=== PATIENT | male | born 1955 | race Caucasian/White ===

== ENCOUNTER 2024-07-13 11:05 | Emergency (ER) | payer MEDICAID ==
[~2024-07-13] VITALS: Ht 177.8 cm; Wt 81.8 kg
[2024-07-13 11:09] VITALS: BP 117/103; PULSE 67; RESP 18; TEMP 98; O2SAT 97
[2024-07-14] MEDS ORDERED: LISI10TA27 PO (02:13)
== END 2024-07-13 12:09 ==
LOC: ER 11:06 → EEVIPCON 11:06 → ER 12:09
DX: Z02.89 Encounter for other administrative examinations (principal)
CPT/HCPCS: 99283

== ENCOUNTER 2024-07-13 18:04 | Inpatient (IN) | payer MEDICAID, OTHER ==
[~2024-07-13] VITALS: Ht 170.2 cm; Wt 78.1 kg
[2024-07-13] MEDS: normal saline 1000ml 1,000 ML IV ONE ×2 (18:30→22:04)
[2024-07-13 19:34] LABS: BASOPHILS % (AUTO) 0.1 % (0-1); EOSINOPHILS % (AUTO) 0 % (0-6); HEMATOCRIT 35.2 % (42.0-52.0); HEMOGLOBIN 11.7 g/dl (14.0-17.9); LYMPHOCYTES # (AUTO) 0.7 X10'3 (1.1-4.8); LYMPHOCYTES % (AUTO) 4.7 % (21-51); MEAN CORPUSCULAR HGB CONC 33.4 g/dL (33.0-36.5); MEAN CORPUSCULAR VOLUME 95.8 FL (78-98); MEAN PLATELET VOLUME 9.6 FL (7.4-10.4); MONOCYTES # (AUTO) 0.7 X10'3 (0-0.9); MONOCYTES % (AUTO) 4.7 % (2-12); NEUTROPHILS # (AUTO) 12.7 X10'3 (1.8-7.7); NEUTROPHILS % (AUTO) 90.5 % (42-75); PLATELET COUNT 249 X10'3 (140-440); RED BLOOD COUNT 3.67 X10'6 (4.70-6.10); RED CELL DISTRIBUTION WIDTH 13.9 % (11.5-14.5)
[2024-07-13 19:51] LABS: ALANINE AMINOTRANSFERASE 27 U/L (12-78); ALBUMIN 4.4 G/DL (3.4-5.0); ALBUMIN/GLOBULIN RATIO 1.1 (1.1-1.5); ALKALINE PHOSPHATASE 92 IU/L (46-116); ANION GAP 11 (8-16); ASPARTATE AMINO TRANSFERASE 35 U/L (10-37); BILIRUBIN,TOTAL 0.4 MG/DL (0.1-1.0); BLOOD UREA NITROGEN 42 MG/DL (7-18); BUN/CREATININE RATIO 14.6 (10.0-20.0); CALCIUM 8.7 MG/DL (8.5-10.1); CHLORIDE 109 MMOL/L (99-107); CREATININE 2.88 MG/DL (0.60-1.10); GLUCOSE 139 MG/DL (70-104); POTASSIUM 4.4 MMOL/L (3.5-5.1); SODIUM 143 MMOL/L (135-145); TOTAL CARBON DIOXIDE 22.7 MMOL/L (24-32); TOTAL PROTEIN 8.3 G/DL (6.4-8.2); eCRCL 24 ML/MIN; eGFR 22 ML/MIN
[2024-07-13 19:55] LABS: ETHANOL < 10 MG/DL (<10)
[2024-07-13 20:36] LABS: BILIRUBIN,URINE NEGATIVE (Neg); CLARITY,URINE CLEAR (Clear); COLOR,URINE YELLOW (Yellow); GLUCOSE, URINE NEGATIVE (Neg); KETONES,URINE NEGATIVE (Neg); LEUKOCYTE ESTERASE ,URINE NEGATIVE (Neg); NITRITES, URINE NEGATIVE (Neg); OCCULT BLOOD,URINE NEGATIVE (Neg); PROTEIN,URINE TRACE mg/dl (Neg); UROBILINOGEN,URINE 0.2 E.U/dL (0.2-1.0)
[2024-07-13 20:39] LABS: UA COLLECTION TYPE STRAIGHT CATH
[2024-07-13 20:43] LABS: MUCUS STRANDS FEW /LPF (Neg); SQUAMOUS EPITHELIAL CELL,UR FEW /LPF (FEW)
[2024-07-13 20:44] LABS: BACTERIA,URINE FEW /HPF (Neg); RBC,URINE 0-2 /HPF (0-2)
[2024-07-13 20:53] LABS: URINE AMPHETAMINE SCREEN NEGATIVE (Neg); URINE BARBITUATE SCREEN NEGATIVE (Neg); URINE BENZODIAZEPINES SCREEN NEGATIVE (Neg); URINE CANNABINOID SCREEN NEGATIVE (Neg); URINE COCAINE SCREEN NEGATIVE (Neg); URINE METHADONE SCREEN NEGATIVE (Neg); URINE OPIATE SCREEN NEGATIVE (Neg); URINE PHENCYCLIDINE SCREEN NEGATIVE (Neg)
[2024-07-13] MEDS: thiamine 100mg/ml 2ml inj. IV ONE (22:10)
[2024-07-13] MEDS: TETanus/Pertussis (Acell)/Diphther VAC/PF (Tdap-Adult) 0.5ml syringe IMVAC ONE (22:13)
[2024-07-13] MEDS: lactulose 20gm/30ml cup PO ONE (23:35)
[2024-07-13] MEDS ORDERED: morphine 2 MG/ML inj. syringe IV PRN (23:40)
[2024-07-13] MEDS ORDERED: potassium Cl 40MEQ/1/2NS 520ml 520 ML IV PRN (23:40)
[2024-07-13] MEDS ORDERED: potassium Cl 20 mEq SR tablet PO PRN ×2 (23:40)
[2024-07-13] MEDS ORDERED: mag hydrox/Alum hydrox/simeth 30ml oral suspension PO PRN (23:40)
[2024-07-13] MEDS ORDERED: magnesium sulf-water 4G/100mL 100 ML IV PRN (23:40)
[2024-07-13] MEDS ORDERED: magnesium Cl slow-release 64mg tablet PO PRN (23:40)
[2024-07-13] MEDS ORDERED: LORazepam 2 mg/ml vial IV PRN (23:40)
[2024-07-13] MEDS ORDERED: magnesium hydroxide 30ml (MOM) UD suspension PO PRN (23:40)
[2024-07-13] MEDS ORDERED: magnesium sulf-water 2g/50mL 50 ML IV PRN (23:40)
[2024-07-13] MEDS ORDERED: CefTRIAXone/D5W-Rocephin 1gm 50 ML IV SCH (23:55)
[2024-07-13] MEDS: normal saline 1000ml 1,000 ML IV SCH (23:57)
[2024-07-14] VITALS (8 sets, daily range): BP systolic 149–186; BP diastolic 75–102; PULSE 73–109; RESP 11–24; TEMP 97.9–98.5; O2SAT 95–100
[2024-07-14 00:31] LABS: HEMOGLOBIN A1C 5.4 % (4.5-6.2)
[2024-07-14 00:32] LABS: APTT 24 SECONDS (22-32); MAGNESIUM 2.3 MG/DL (1.5-2.4); POTASSIUM 4.2 MMOL/L (3.5-5.1); PROTHROMBIN TIME 10.5 SECONDS (9.0-12.0)
[2024-07-14] MEDS ORDERED: LISI10TA27 PO (02:13)
[2024-07-14] MEDS: CefTRIAXone/D5W-Rocephin 1gm 50 ML IV SCH (02:52)
[2024-07-14 02:55] LABS: BASOPHILS % (AUTO) 0.1 % (0-1); EOSINOPHILS % (AUTO) 0 % (0-6); HEMATOCRIT 31.5 % (42.0-52.0); HEMOGLOBIN 10.4 g/dl (14.0-17.9); LYMPHOCYTES # (AUTO) 1.3 X10'3 (1.1-4.8); LYMPHOCYTES % (AUTO) 7.6 % (21-51); MEAN CORPUSCULAR HEMOGLOBIN 31.6 PG (27.0-31.0); MEAN CORPUSCULAR VOLUME 95.7 FL (78-98); MEAN PLATELET VOLUME 9.2 FL (7.4-10.4); MONOCYTES % (AUTO) 5.7 % (2-12); NEUTROPHILS # (AUTO) 14.6 X10'3 (1.8-7.7); NEUTROPHILS % (AUTO) 86.6 % (42-75); PLATELET COUNT 202 X10'3 (140-440); RED BLOOD COUNT 3.29 X10'6 (4.70-6.10); RED CELL DISTRIBUTION WIDTH 13.6 % (11.5-14.5); WHITE BLOOD COUNT 16.8 X10'3 (4.5-11.0)
[2024-07-14 03:15] LABS: ALANINE AMINOTRANSFERASE 22 U/L (12-78); ALBUMIN 3.6 G/DL (3.4-5.0); ALBUMIN/GLOBULIN RATIO 1.1 (1.1-1.5); ALKALINE PHOSPHATASE 74 IU/L (46-116); ANION GAP 9 (8-16); ASPARTATE AMINO TRANSFERASE 27 U/L (10-37); BILIRUBIN,TOTAL 0.5 MG/DL (0.1-1.0); BLOOD UREA NITROGEN 34 MG/DL (7-18); CALCIUM 8.2 MG/DL (8.5-10.1); CHLORIDE 116 MMOL/L (99-107); CHOL/HDL RATIO 2.7 (0.00-4.99); CHOLESTEROL 119 MG/DL (0-200); GLUCOSE 111 MG/DL (70-104); HDL CHOLESTEROL 44 MG/DL (35-60); LDL CHOLESTEROL 68 MG/DL (50-100); MAGNESIUM 2.2 MG/DL (1.5-2.4); POTASSIUM 4.2 MMOL/L (3.5-5.1); SODIUM 147 MMOL/L (135-145); TOTAL CARBON DIOXIDE 21.6 MMOL/L (24-32); TRIGLYCERIDES 44 MG/DL (20-135); eCRCL 40 ML/MIN; eGFR 41 ML/MIN
[2024-07-14] MEDS ORDERED: hydrALAZINE 20mg/ml inj. IV ONE (07:50)
[2024-07-14] MEDS: folic acid 1mg/0.2ml inj IV SCH (08:00)
[2024-07-14] MEDS: K and/or MAG REPLACEMENT MC SCH (08:00)
[2024-07-14] MEDS: lisinopril 10 MG tablet PO SCH (08:30)
[2024-07-14] MEDS: metoprolol tartrate 1mg/ml inj IV ONE (11:25)
[2024-07-14] MEDS: docusate sod 100mg capsule PO SCH (11:28)
[2024-07-14] MEDS: heparin, porcine 5000 units/ml vial SQ SCH (11:30)
[2024-07-14] MEDS: thiamine 100mg/ml 2ml inj. IV SCH (11:34)
[2024-07-15] VITALS (7 sets, daily range): BP systolic 144–162; BP diastolic 80–92; PULSE 64–88; RESP 12–15; TEMP 97.1–98.3; O2SAT 93–97
[2024-07-15] MEDS: Melatonin 3mg tablet PO ONE (05:53)
[2024-07-15 08:08] LABS: BASOPHILS % (AUTO) 0.4 % (0-1); EOSINOPHILS % (AUTO) 0.4 % (0-6); HEMATOCRIT 30.8 % (42.0-52.0); HEMOGLOBIN 10.3 g/dl (14.0-17.9); LYMPHOCYTES # (AUTO) 1.3 X10'3 (1.1-4.8); LYMPHOCYTES % (AUTO) 15.5 % (21-51); MEAN CORPUSCULAR HEMOGLOBIN 31.9 PG (27.0-31.0); MEAN CORPUSCULAR HGB CONC 33.5 g/dL (33.0-36.5); MEAN CORPUSCULAR VOLUME 95.3 FL (78-98); MEAN PLATELET VOLUME 9.6 FL (7.4-10.4); MONOCYTES # (AUTO) 0.7 X10'3 (0-0.9); NEUTROPHILS # (AUTO) 6.6 X10'3 (1.8-7.7); NEUTROPHILS % (AUTO) 75.7 % (42-75); PLATELET COUNT 188 X10'3 (140-440); RED BLOOD COUNT 3.23 X10'6 (4.70-6.10); RED CELL DISTRIBUTION WIDTH 13.8 % (11.5-14.5); WHITE BLOOD COUNT 8.7 X10'3 (4.5-11.0)
[2024-07-15] MEDS: ondansetron/PF 4mg/2ml inj IV PRN (08:12)
[2024-07-15 08:35] LABS: ALANINE AMINOTRANSFERASE 18 U/L (12-78); ALBUMIN 3.1 G/DL (3.4-5.0); ALBUMIN/GLOBULIN RATIO 0.9 (1.1-1.5); ALKALINE PHOSPHATASE 64 IU/L (46-116); ANION GAP 8 (8-16); ASPARTATE AMINO TRANSFERASE 24 U/L (10-37); BILIRUBIN,TOTAL 0.4 MG/DL (0.1-1.0); BLOOD UREA NITROGEN 18 MG/DL (7-18); BUN/CREATININE RATIO 20.9 (10.0-20.0); CALCIUM 8.1 MG/DL (8.5-10.1); CHLORIDE 110 MMOL/L (99-107); CREATININE 0.86 MG/DL (0.60-1.10); GLUCOSE 117 MG/DL (70-104); MAGNESIUM 1.9 MG/DL (1.5-2.4); POTASSIUM 3.5 MMOL/L (3.5-5.1); SODIUM 142 MMOL/L (135-145); TOTAL CARBON DIOXIDE 24.1 MMOL/L (24-32); TOTAL PROTEIN 6.5 G/DL (6.4-8.2); eCRCL 79 ML/MIN; eGFR 89 ML/MIN
[2024-07-15 08:47] LABS: ABG BASE EXCESS -3.7 mmol/L (-2.0-3.0); ABG HCO3 21.8 mmol/L (21.0-28.0); ABG PCO2 (T) 39.9 mmHg (35.0-48.0); ABG PH (T) 7.351 (7.350-7.450); ABG PO2 (T) 61.8 mmHg (83.0-108.0); ALLEN'S TEST POSITIVE; FCOHb 0.9 % (0.5-1.5); FHHb 6.9 % (0.0-5.0); FMetHb 0.3 % (0.0-1.5); FO2Hb 91.9 % (94.0-98.0); MODE ROOM AIR; PATIENT TEMPERATURE 36.2; TOTAL HEMOGLOBIN 11.4 G/dl (13.5-17.5)
[2024-07-15] MEDS: potassium Cl 20 mEq SR tablet PO STA (12:10)
[2024-07-15] MEDS: acetaminophen 325mg tablet PO PRN (19:29)
[2024-07-16 02:00] VITALS: BP 159/81; PULSE 76; RESP 16; TEMP 97.5; O2SAT 94
[2024-07-16] MEDS: Melatonin 3mg tablet PO SCH (03:35)
[2024-07-16 06:59] LABS: BASOPHILS % (AUTO) 0.3 % (0-1); EOSINOPHILS # (AUTO) 0.1 X10'3 (0-0.9); EOSINOPHILS % (AUTO) 0.5 % (0-6); HEMATOCRIT 31.7 % (42.0-52.0); HEMOGLOBIN 10.9 g/dl (14.0-17.9); LYMPHOCYTES # (AUTO) 1.5 X10'3 (1.1-4.8); LYMPHOCYTES % (AUTO) 15.8 % (21-51); MEAN CORPUSCULAR HGB CONC 34.4 g/dL (33.0-36.5); MEAN PLATELET VOLUME 9.6 FL (7.4-10.4); MONOCYTES % (AUTO) 10.1 % (2-12); NEUTROPHILS # (AUTO) 7.2 X10'3 (1.8-7.7); NEUTROPHILS % (AUTO) 73.3 % (42-75); PLATELET COUNT 204 X10'3 (140-440); RED CELL DISTRIBUTION WIDTH 13.3 % (11.5-14.5); WHITE BLOOD COUNT 9.8 X10'3 (4.5-11.0)
[2024-07-16 07:00] VITALS: BP 171/87; PULSE 62; RESP 13; TEMP 98.1; O2SAT 95
[2024-07-16 07:36] LABS: ALANINE AMINOTRANSFERASE 24 U/L (12-78); ALBUMIN 3.1 G/DL (3.4-5.0); ALBUMIN/GLOBULIN RATIO 0.8 (1.1-1.5); ALKALINE PHOSPHATASE 68 IU/L (46-116); ANION GAP 6 (8-16); ASPARTATE AMINO TRANSFERASE 19 U/L (10-37); BILIRUBIN,TOTAL 0.3 MG/DL (0.1-1.0); BLOOD UREA NITROGEN 15 MG/DL (7-18); CALCIUM 8.4 MG/DL (8.5-10.1); CHLORIDE 106 MMOL/L (99-107); CREATININE 0.88 MG/DL (0.60-1.10); GLUCOSE 120 MG/DL (70-104); POTASSIUM 3.8 MMOL/L (3.5-5.1); SODIUM 139 MMOL/L (135-145); TOTAL CARBON DIOXIDE 26.9 MMOL/L (24-32); TOTAL PROTEIN 6.8 G/DL (6.4-8.2); eCRCL 77 ML/MIN; eGFR 87 ML/MIN
[2024-07-16 11:13] VITALS: BP 154/75; PULSE 72; RESP 15; TEMP 98.4; O2SAT 92
[2024-07-16 14:06] VITALS: RESP 16; O2SAT 95
[2024-07-16] MEDS ORDERED: AMLO2.5T2 PO (17:23)
[2024-07-16] MEDS ORDERED: CEFU250T95 PO (17:23)
[2024-07-18] MEDS ORDERED: folic acid 1mg tablet PO SCH (08:00)
[2024-07-18] MEDS ORDERED: thiamine 100mg tablet PO SCH (08:00)
== END 2024-07-16 19:05 | disposition home or self-care (01) | DRG 441 ==
LOC: ER 18:05 → EEVIPCON 18:05 → ED HOLD 23:55 → PCU 3S 07-14 03:15
PROVIDERS: ADMIT Student in an Organized Health Care Education/Training Program; ATTEND Family Medicine
DX: K76.82 Hepatic encephalopathy (principal); N17.0 Acute kidney failure with tubular necrosis; N39.0 Urinary tract infection, site not specified; S02.2XXA Fracture of nasal bones, initial encounter for closed fracture; S00.03XA Contusion of scalp, initial encounter; S06.0X0A Concussion without loss of consciousness, initial encounter; X58.XXXA Exposure to other specified factors, initial encounter; Y93.89 Activity, other specified; Y92.89 Other specified places as the place of occurrence of the external cause; Y99.8 Other external cause status
CPT/HCPCS: 36415; 36600; 70450; 70480; 71045; 72125; 76770; 80053; 80061; 80305; 80320; 81001; 82140; 82607; 82803; 82948; 83036; 83605; 83735; 84100; 84132; 84145; 85018; 85025; 85610; 85730; 87040; 87088; 90471; 90715; 93005; 93306; 96374; 97116; 97161; 97530; 97535; 99285; G0378; J0696; J1644; J2405; J3411; J3490; J7030